=== PATIENT | male | born 1970 | race Two or more races ===

== ENCOUNTER 2024-03-29 22:22 | Emergency (ER) | payer MEDICAID, OTHER ==
[~2024-03-29] VITALS: Ht 180.3 cm; Wt 92.7 kg
[2024-03-30 02:44] VITALS: BP 104/61; PULSE 86; RESP 16; TEMP 98.7; O2SAT 93
[2024-03-30] MEDS: KETOROLAC TROMETH 30 MG/ML 1ML VIAL IM ONE (02:50)
[2024-03-30] MEDS ORDERED: HYDR-4798 PO (05:00)
[2024-03-30] MEDS ORDERED: IBUP-1455 PO (05:00)
== END 2024-03-30 05:10 | disposition home or self-care (01) ==
LOC: ER 22:22
DX: S42.002A Fracture of unspecified part of left clavicle, initial encounter for closed fracture (principal); S22.32XA Fracture of one rib, left side, initial encounter for closed fracture; S43.102A Unspecified dislocation of left acromioclavicular joint, initial encounter; V89.9XXA Person injured in unspecified vehicle accident, initial encounter; Y93.89 Activity, other specified; Y92.89 Other specified places as the place of occurrence of the external cause; Y99.8 Other external cause status
CPT/HCPCS: 71045; 71250; 73030; 96372; 99285; J1885